=== PATIENT | female | born 1960 | race Caucasian/White ===

== ENCOUNTER 2016-10-11 18:33 | Emergency (ER) | payer MEDICAID, OTHER ==
[~2016-10-11] VITALS: Ht 162.6 cm; Wt 65.0 kg
[~2016-10-11 18:33] MED LIST: ACET-171 PO; ALBU8.5H2 INHALATION; DEXT10CA2 PO; HYDR-3740 PO; PRE625 PO
[2016-10-11 18:39] VITALS: BP 151/106; PULSE 104; RESP 20; O2SAT 98
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
[2016-10-11] MEDS ORDERED: HYDROcodone-APAP 5-325 mg Tablet PO ONE (19:50)
[2016-10-11 20:17] LABS: BASOPHILS % (AUTO) 0.3 % (0-3); EOSINOPHILS % (AUTO) 3.3 % (0-5); MONOCYTES % (AUTO) 13.9 % (4-12); Mean Corpuscular Hemoglobin 29.8 pg (27.0-35.0); Mean Corpuscular Volume 87.1 fL (81-100); NEUTROPHILS % (AUTO) 50.8 % (40-74); Platelet Count 271 bil/L (150-400)
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
[2016-10-11] MEDS ORDERED: _HYDROcodone/APAP 5-325 mg Tablet PO PRN (21:40)
== END 2016-10-11 22:53 | disposition home or self-care (01) ==
LOC: SED 18:33
DX: S80.01XA Contusion of right knee, initial encounter (principal); S30.0XXA Contusion of lower back and pelvis, initial encounter; S20.221A Contusion of right back wall of thorax, initial encounter; M25.461 Effusion, right knee; Y04.8XXA Assault by other bodily force, initial encounter; Y93.9 Activity, unspecified; Y92.89 Other specified places as the place of occurrence of the external cause; Y99.8 Other external cause status; J45.909 Unspecified asthma, uncomplicated; Z88.2 Allergy status to sulfonamides; Z88.0 Allergy status to penicillin; Z59.0 Homelessness

== ENCOUNTER 2016-10-12 06:16 | Emergency (ER) | payer MEDICAID, OTHER ==
[~2016-10-12] VITALS: Ht 162.6 cm; Wt 63.6 kg
[2016-10-12 06:31] VITALS: BP 152/90; PULSE 89; RESP 20; O2SAT 100
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
== END 2016-10-12 08:28 | disposition home or self-care (01) ==
LOC: SED 06:16
DX: M25.561 Pain in right knee (principal); Z88.0 Allergy status to penicillin; Z88.2 Allergy status to sulfonamides

== ENCOUNTER 2016-10-15 12:12 | Emergency (ER) | payer MEDICAID ==
[~2016-10-15] VITALS: Ht 162.6 cm; Wt 65.9 kg
[2016-10-15 12:16] VITALS: BP 144/109; PULSE 82; RESP 17; O2SAT 99
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
[2016-10-15] MEDS ORDERED: ACET-171 PO (13:21)
[2016-10-15] MEDS ORDERED: HYDR-4003 PO (13:21)
[2016-10-15] MEDS ORDERED: HYDROcodone-APAP 5-325 mg Tablet PO ONE (13:25)
== END 2016-10-15 13:53 | disposition home or self-care (01) ==
LOC: SED 12:12
DX: M25.561 Pain in right knee (principal); Y04.0XXA Assault by unarmed brawl or fight, initial encounter; Y93.89 Activity, other specified; Y92.89 Other specified places as the place of occurrence of the external cause; Y99.8 Other external cause status; G89.29 Other chronic pain; J45.909 Unspecified asthma, uncomplicated; Z88.0 Allergy status to penicillin; Z88.1 Allergy status to other antibiotic agents